=== PATIENT | female | born 1985 ===

== ENCOUNTER 2023-06-07 13:00 | Outpatient (AMB) | payer MEDICARE, MEDICAID, SELFPAY ==
--- NOTE | 2023-06-07 13:15 | MHC.OFFWIV ---
Intake Vital Signs 06/07/23 13:41 Height 5 ft 5 in Weight 158 lb 4 oz BMI 26.3 BP 122/76 Blood Pressure Location Lt brachial Position Sitting Pulse 72 Pulse Source Pulse Oximeter Temp 97.6 F Temp Source Temporal Artery Scan Pulse Oximetry (%) 100 Oxygen Delivery Method Room Air Intake Visit Reasons: Drug Screen Intake Note: pt is here for drug screening for [facility] Allergies No Known Allergies Allergy (Verified 06/07/23 13:16) Do you need a note to return to daycare/school/sports/work: Yes HPI Drug Screen HPI Details Patient is a 37-year-old female who recently had her children removed from her home by [facility]. Apparently she has a history of opiate dependence, and she reports that she went to the hairdresser recently who called [facility] when the patient fell asleep during the service. She requests urine drug testing from the walk-in, and knowing that we do not have itching custody in place here. She does report having a prescription for benzodiazepines which she uses. She denies any other concerns or symptoms. Review of Systems Const All systems reviewed & are unremarkable except as noted in HPI and below Physical Exam Vital Signs: Last Vital Signs Temp 97.6 F 06/07/23 13:41 Pulse 72 06/07/23 13:41 BP 122/76 06/07/23 13:41 Pulse Ox 100 06/07/23 13:41 Oxygen Delivery Method Room Air 06/07/23 13:41 BMI result Body Mass Index 26.3 Const General: cooperative, healthy appearing, well developed, alert, awake, Physically active, in distress (Emotional distress) and well groomed; No ill appearing Nutritional Appearance: average body habitus Orientation/consciousness: patient oriented x3 Limitations: no limitations Neuro General: patient oriented x3 Psych Appearance: grossly normal Affect: Labile affect present Attitude: cooperative Assessment & Plan Assessment & Plan (1) Encounter for drug screening: Code(s): Z02.83 - Encounter for blood-alcohol and blood-drug test Plan: Patient is a 37-year-old female comes to the office requesting urine drug screening without a chain of custody and plays, to help with D[employer] investigation. Orders: Orders Drug Screen Urine 06/07/23 Z02.83 - Encounter for blood-alcohol and blood-drug test Coding Level of Care Code New Pt Level 3 (54239) Diagnoses Encounter for drug screening Z.83
[2023-06-07 13:41] VITALS: BP 122/76; PULSE 72; TEMP 36.4; O2SAT 100; BMI 26.3
== END 2023-06-07 14:06 | disposition home or self-care (01) ==
LOC: HO.HMGWI 13:00
PROVIDERS: Visit Provider Physician Assistant Medical
DX: Z02.83 Encounter for blood-alcohol and blood-drug test (principal)
CPT/HCPCS: 99202

== ENCOUNTER 2023-06-07 13:53 | Outpatient (REF) | payer MEDICARE, MEDICAID, SELFPAY ==
[2023-06-07 15:26] LABS: Amphetamine Screen Urine Not Detected (Not Detect); Barbiturates, Urine Not Detected (Not Detect); Benzodiazepines Screen Urine POSITIVE (Not Detect); Cannabinoid Screen Urine Not Detected (Not Detect); Cocaine Screen Urine Not Detected (Not Detect); Fentanyl, urine Not Detected (Not Detect); Opiate Screen Urine Not Detected (Not Detect); Phencyclidine Screen Urine Not Detected (Not Detect)
== END 2023-06-07 13:54 | disposition home or self-care (01) ==
LOC: HO.HMGCLDS 13:53
PROVIDERS: Visit Provider Physician Assistant Medical
DX: Z13.89 Encounter for screening for other disorder (principal); R53.83 Other fatigue; F11.21 Opioid dependence, in remission
CPT/HCPCS: 80307